=== PATIENT | male | born 1960 | race Caucasian/White ===

== ENCOUNTER 2025-01-28 09:02 | Outpatient (CLI) | payer MEDICARE, SELFPAY ==
--- NOTE | 2025-01-28 09:07 | US_ITS ---
WS: [id number] INDICATION: Chest lump TECHNIQUE: Ultrasound chest near the sternum in the area of concern FINDINGS: Ultrasound sternum area of concern. Well-circumscribed solid-appearing subcutaneous nodule in the area of concern measuring 1.9 x 0.8 x 2.5 cm. No internal vascularity. Mixed internal echogenicity. This is technically indeterminate and differential considerations are broad. In the absence of additional information, consider further evaluation with FNA. This could also be further evaluated with chest CT to assess for additional lesions if concern. US/US chest [id number] IMPRESSION: See above
== END 2025-01-28 09:03 | disposition home or self-care (01) ==
LOC: RAD 09:05
PROVIDERS: PCP Nurse Practitioner Family; Visit Provider Nurse Practitioner Family
DX: R22.2 Localized swelling, mass and lump, trunk (principal)
CPT/HCPCS: 76604

== ENCOUNTER → 2025-03-31 07:31 | Outpatient (BNVA) | payer MEDICARE, SELFPAY | PROVIDERS: Referring Provider Nurse Practitioner Family; Visit Provider Psychiatry & Neurology Neurology | DX: G62.9 Polyneuropathy, unspecified (principal); R20.2 Paresthesia of skin | CPT/HCPCS: 95885; 95910 ==